=== PATIENT | male | born 1995 | race African-American/Black ===

== ENCOUNTER 2017-06-19 11:29 | Emergency (ER) | payer OTHER ==
[~2017-06-19] VITALS: Ht 167.6 cm; Wt 60.0 kg
[2017-06-19 11:31] VITALS: BP 121/87; PULSE 63; RESP 12; TEMP 98.4; O2SAT 98
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
== END 2017-06-19 12:26 | disposition left against medical advice (07) ==
LOC: NEPK 11:29
DX: M54.5 Low back pain (principal)
CPT/HCPCS: 99281